=== PATIENT | male | born 1965 | race Caucasian/White ===

== ENCOUNTER 2016-10-21 07:48 | Emergency (ER) | payer MEDICAID ==
[~2016-10-21] VITALS: Ht 177.8 cm; Wt 99.8 kg
[~2016-10-21 07:48] MED LIST: ASPIRIN325 MG PO; BENICAR20 MG PO; DEPO-TESTO100 MG/1 M IM; HYDROCODON-ACE1 EAC4 PO; HYDROCODON-ACE1 EAC6 PO; LYRICA50 MG PO; SYNTHROID150 MCG PO; VITAMIN B-1000 MCG/1 SUBCUT
[2016-10-21] MEDS ORDERED: PERCOCET 10-321 EACH PO (08:04)
[2016-10-21] MEDS ORDERED: DURAGESIC1 EAC1 TRDERM (08:05)
[2017-03-10] MEDS ORDERED: PERCOCET 10-321 EACH PO ×2 (05:53→05:54)
[2017-03-10] MEDS ORDERED: TESTOSTERO200 MG/1 M INJECT (05:55)
[2017-03-10] MEDS ORDERED: ELIQUIS5 MG PO (05:56)
[2017-03-10] MEDS ORDERED: OXYCODONE HCL10 MG PO (06:25)
== END 2016-10-21 10:03 | disposition short-term general hospital (02) ==
LOC: ER 07:48
DX: R00.2 Palpitations (principal); G89.29 Other chronic pain; M79.605 Pain in left leg; M79.604 Pain in right leg; D75.1 Secondary polycythemia; Z79.82 Long term (current) use of aspirin; Z79.899 Other long term (current) drug therapy
CPT/HCPCS: J1885

== ENCOUNTER 2016-11-21 16:40 | Emergency (ER) | payer MEDICAID ==
[~2016-11-21] VITALS: Ht 177.8 cm; Wt 102.1 kg
[~2016-11-21 16:40] MED LIST changes: +DURAGESIC1 EAC1 TRDERM; +PERCOCET 10-321 EACH PO
[2017-03-10] MEDS ORDERED: PERCOCET 10-321 EACH PO ×2 (05:53→05:54)
[2017-03-10] MEDS ORDERED: TESTOSTERO200 MG/1 M INJECT (05:55)
[2017-03-10] MEDS ORDERED: ELIQUIS5 MG PO (05:56)
[2017-03-10] MEDS ORDERED: OXYCODONE HCL10 MG PO (06:25)
== END 2016-11-21 19:50 | disposition short-term general hospital (02) ==
LOC: ER 16:40
DX: G43.909 Migraine, unspecified, not intractable, without status migrainosus (principal); R11.0 Nausea; Z79.899 Other long term (current) drug therapy
CPT/HCPCS: J1200; J1885; J2060; J2550; J3010; J3360

== ENCOUNTER 2016-11-21 22:08 | Emergency (ER) | payer MEDICAID ==
[~2016-11-21] VITALS: Ht 177.8 cm; Wt 102.1 kg
[2017-03-10] MEDS ORDERED: PERCOCET 10-321 EACH PO ×2 (05:53→05:54)
[2017-03-10] MEDS ORDERED: TESTOSTERO200 MG/1 M INJECT (05:55)
[2017-03-10] MEDS ORDERED: ELIQUIS5 MG PO (05:56)
[2017-03-10] MEDS ORDERED: OXYCODONE HCL10 MG PO (06:25)
== END 2016-11-21 22:38 | disposition short-term general hospital (02) ==
LOC: ER 22:08
DX: G25.9 Extrapyramidal and movement disorder, unspecified (principal); R51 Headache; T42.4X5A Adverse effect of benzodiazepines, initial encounter; F41.9 Anxiety disorder, unspecified